=== PATIENT | female | born 1985 | race Caucasian/White ===

== ENCOUNTER 2024-04-28 14:43 | Emergency (ER) | payer OTHER ==
[2024-04-28 16:08] LABS: Absolute Lymphocytes (CBC) 0.8 K/uL (0.7-4.9); Absolute Monocytes 0.4 K/uL (0.1-1.3); Absolute Neutrophil 8.4 K/uL (1.8-8.0); Basophils % 0.3 % (0-1.3); Eosinophils % 0.4 % (0-4.4); Hematocrit 25.9 % (36.0-45.0); Hemoglobin 7.6 g/dL (12.0-15.0); Lymphocytes % 8.7 % (15.3-44.8); MCH 18.6 pg (27.0-35.0); MCHC 29.4 g/dL (32.0-36.0); MCV 63.1 fL (80-100); MPV 7.8 fL (7.6-11.3); Monocytes % 3.8 % (3.3-12.3); Neutrophils % 86.8 % (41.7-73.7); Platelets 294 thou/uL (152-406); Red Cell Distribution Width 18.7 % (12.1-15.2)
[2024-04-28] MEDS ORDERED: NA CHLORIDE 0.9% 1,000 ML ONE ×2 (16:09→16:29)
[2024-04-28 16:23] LABS: SARS-CoV-2 Antigen CONTROL BLUE LINE VIS/BG OK; SARS-CoV-2 Antigen Rapid Res Negative (Negative)
[2024-04-28 16:27] LABS: Albumin 3.1 g/dL (3.4-5.0); Anion Gap 13.3 mEq/L (5.0-15.0); Bilirubin Total 0.3 mg/dL (0.2-1.0); Globulin 3.1 g/dL (2.3-3.5); Potassium 3.3 mEq/L (3.5-5.1); Protein, Total 6.2 g/dL (6.4-8.2)
[2024-04-28 16:33] LABS: Platelet Estimate ADEQ; White Blood Cell Scan OK (OK)
[2024-04-28 16:34] LABS: Blood Morphology Comment NOTED (NOT SEEN); Hypochromasia 2+; Microcytosis 2+
[2024-04-28] MEDS ORDERED: ONDANSETRON 4 MG/2 ML VIAL ONE (17:44)
--- NOTE | 2024-04-28 18:57 | EDPHYS ---
Physician Documentation [facility] Name: Elizabeth Velázquez Age: 38 yrs Sex: Female : 1985 Arrival Date: 04/28/2024 Time: 14:43 Bed 19 Private MD: ED Physician Chapito Beasley HPI: 04/28 15:24 This 38 yrs old Female presents to ER via Ambulatory with complaints of 5 wks , sb4 Vomiting, Fever. 15:32 Sudden onset of dizziness and feeling hot that began this morning while in active. sb4 Patient is approximately 5 weeks . Has not yet had care. This is her fifth . Denies any abdominal pain or cramping. No vaginal bleeding. Denies any chest pain or shortness of breath. Denies any upper respiratory symptoms. does report history of anxiety. RATING EXAMINER: 15:18 5, Full Term 4, Living 4, LMP 03/27/2024, unknown jl7 Historical: - Allergies: 15:18 No Known Allergies; jl7 - Home Meds: 15:18 None [Active]; jl7 - PMHx: 15:18 Anxiety; jl7 - Immunization history:: Adult Immunizations unknown. - Infectious Disease History:: Denies. - Social history:: Smoking status: unknown. ROS: 15:32 Constitutional: Negative for fever, chills, and weight loss, sb4 15:32 Abdomen/GI: Positive for nausea and vomiting, 15:32 All other systems are negative, Exam: 15:32 Head/Face: Normocephalic, atraumatic. Eyes: Extra-ocular motions intact. Periorbital sb4 areas with no swelling, redness, or edema. ENT: Mucous membranes moist. Respiratory: No increased work of breathing, no retractions or nasal flaring. Abdomen/GI: Soft, non-tender, no distension. Skin: Warm, dry with normal turgor. Normal color with no rashes, no lesions, and no evidence of cellulitis. 15:32 Constitutional: The patient appears alert, awake, anxious, in obvious distress, restless, uncomfortable, 15:32 Cardiovascular: Rate: tachycardic, Rhythm: regular, Vital Signs: 15:17 BP 122 / 57; Pulse 115; Resp 20; Temp 69.9; Pulse Ox 100% ; jl7 16:25 Temp 98.6(O); cm10 16:35 BP 131 / 57; Pulse 110; Resp 15; Pulse Ox 100% on R/A; cm10 17:00 BP 121 / 52; Pulse 107; Resp 19; Pulse Ox 100% on R/A; cm10 19:13 BP 108 / 60; Pulse 98; Resp 19; Temp 98.7(O); Pulse Ox 100% on R/A; Pain 0/10; mt4 20:48 BP 117 / 58; Pulse 96; Resp 17; Pulse Ox 100% on R/A; Pain 0/10; mt4 21:00 BP 121 / 49; Pulse 89; Pulse Ox 100% on R/A; mt4 22:36 BP 123 / 53; Pulse 88; Resp 18; Pulse Ox 100% on R/A; mt4 19:13 Pain Scale: Adult mt4 20:48 Pain Scale: Adult mt4 Gerry Coma Score: 19:50 Eye Response: spontaneous(4). Motor Response: obeys commands(6). Verbal Response: mt4 oriented(5). Total: 15. MDM: 15:14 Medical Screening Exam initiated sb4 18:59 Data reviewed: vital signs, nurses notes, lab test result(s), radiologic studies. sb4 Counseling: I had a detailed discussion with the patient and/or guardian regarding the historical points, exam findings, and any diagnostic results supporting the discharge/admit diagnosis, lab results, radiology results, the need to transfer to another facility, [facility] does not immediately have the required specialist. ED course: patient still very dizzy, tachycardic, and vomiting. will transfer for OB services. 20:14 ED course: spoke with OB at [facility], they declined. states OB will not admit a 5 week sb4 and medicine will not either. all [facility] facilities are at medsurg capacity per transfer center. 21:30 ED course: [facility] denied due to capacity. [facility] denied due to sb4 capacity. [facility] denied due to capacity. 21:32 ED course: spoke with hospitalist here, Dr. Jessica, refuses to admit patient here. sb4 04/28 15:19 Order name: CBC with Diff; Complete Time: 16:36 sb4 04/28 15:19 Order name: CMP; Complete Time: 16:31 sb4 04/28 15:19 Order name: SARS RAPID; Complete Time: 16:23 sb4 04/28 15:19 Order name: Flu; Complete Time: 18:13 sb4 04/28 15:22 Order name: HCG-Quantitative; Complete Time: 18:15 sb4 04/28 16:34 Order name: CBC Smear Scan; Complete Time: 16:36 EDMS 04/28 21:01 Order name: ABG: VBG sb4 04/28 21:11 Order name: CBC with Diff sb4 04/28 21:11 Order name: BMP sb4 04/28 18:15 Order name: Transvaginal OB US; Complete Time: 19:16 sb4 04/28 15:19 Order name: IV Saline Lock; Complete Time: 16:24 sb4 04/28 15:19 Order name: Labs collected and sent; Complete Time: 16:24 sb4 Administered Medications: 16:24 Drug: NS 0.9% IV 1000 ml IV at 1 bolus Per protocol; to be given as a bolus over 60 cm10 minutes Route: IV; Rate: 1 bolus; Site: right antecubital; 17:24 Follow up: Response: No adverse reaction; IV Status: Completed infusion; IV Intake: cm10 1000ml 16:32 Drug: NS 0.9% IV 1000 ml IV at 1 bolus Per protocol; to be given as a bolus over 60 cm10 minutes Route: IV; Rate: 1 bolus; Site: right antecubital; 18:19 Follow up: Response: No adverse reaction; IV Status: Completed infusion; IV Intake: cm10 1000ml 17:51 Drug: Ondansetron IVP 4 mg IVP once; over 2 minutes Route: IVP; Site: right antecubital;cm10 18:19 Follow up: Response: No adverse reaction cm10 21:22 CANCELLED (Physician Discretion): [id number] mg IVP once sb4 22:19 Drug: lactated ringers Solution 1000 ml IV at 100 ml/hr continuous Route: IV; Rate: 100 mt4 ml/hr; Site: right antecubital; 23:10 Follow up: Response: No adverse reaction; IV Status: Infusion continued mt4 22:19 Drug: Meclizine PO 25 mg PO once Route: PO; mt4 23:09 Follow up: Response: No adverse reaction mt4 Disposition: 04/29 17:26 Co-signature as Attending Physician, Chapito Beasley MD. rn Disposition Summary: 04/28/24 18:57 Transfer Ordered Notes: Transfer Location: [facility]-System sb4 Reason: Specialty sb4 Condition: Fair sb4 Problem: new sb4 Symptoms: are unchanged sb4 Accepting Physician: ob(04/28/24 23:27) vc1 Diagnosis - Acidosis sb4 - Symptomatic anemia sb4 - 5 weeks gestation sb4 Forms: - Medication Reconciliation Form sb4 - SBAR form sb4 Signatures: Dispatcher [employer] EDMS Fredy Horton MD MD rn Leal, Jahala, RN RN jl7 Danni Loo RN RN vc1 Clemencia Willams PA-C PAHeron sb4 Renny Croado, RN RN rs5 Madonna Huber, RN RN cm10 Bishnu Steinberg, RN RN mt4 Corrections: (The following items were deleted from the chart) 04/28 15:20 15:20 CBC+H.LAB.BRZ ordered. EDMS EDMS 15:20 15:20 COMPREHENSIVE METABOLIC PANEL+C.LAB.BRZ ordered. EDMS EDMS 15:20 15:20 Test, Urine+UC.LAB.BRZ ordered. EDMS EDMS 15:20 15:20 Urinalysis+U.LAB.BRZ ordered. EDMS EDMS 15:20 15:20 SARS-COV-2 Antigen Rapid+I.LAB.BRZ ordered. EDMS EDMS 15:20 15:20 Influenza Screen (A \T\ B)+BA.LAB.BRZ ordered. EDMS EDMS 18:16 18:16 Transvaginal Ob+US.RAD.BRZ ordered. EDMS EDMS 21:22 21:21 Promethazine IVP 12.5 mg IVP once ordered. sb4 sb4 21:32 21:27 ED course: . sb4 sb4 21:34 20:14 ED course: spoke with OB at [facility], they declined. states OB will not admit a 5 sb4 week and medicine will not either.. sb4 23:27 18:57 ob sb4 vc1
--- NOTE | 2024-04-28 18:57 | ER ---
Nurse's Notes [facility] Name: Elizabeth Velázquez Age: 38 yrs Sex: Female : 1985 Arrival Date: 04/28/2024 Time: 14:43 Bed 19 Private MD: Diagnosis: Acidosis;Symptomatic anemia;5 weeks gestation Presentation: 04/28 15:17 Chief complaint: Spouse and/or significant other states: she got hot and dizzy and jl7 started vomiting. Coronavirus screen: At this time, the client does not indicate any symptoms associated with coronavirus-19. Ebola Screen: No symptoms or risks identified at this time. Initial Sepsis Screen: Does the patient meet any 2 criteria? No. Patient's initial sepsis screen is negative. Does the patient have a suspected source of infection? No. Patient's initial sepsis screen is negative. Risk Assessment: Do you want to hurt yourself or someone else? Patient reports no desire to harm self or others. Onset of symptoms was April 28, 2024. 15:17 Method Of Arrival: Ambulatory [facility] 15:17 Acuity: KEENAN 3 jl7 ACCOUNT STRATEGIST: 15:18 5, Full Term 4, Living 4, LMP 03/27/2024, unknown jl7 Historical: - Allergies: 15:18 No Known Allergies; jl7 - Home Meds: 15:18 None [Active]; jl7 - PMHx: 15:18 Anxiety; jl7 - Immunization history:: Adult Immunizations unknown. - Infectious Disease History:: Denies. - Social history:: Smoking status: unknown. Screenin:20 [facility] ED Fall Risk Assessment (Adult) History of falling in the last 3 months, cm10 including since admission No falls in past 3 months (0 pts) Confusion or Disorientation No (0 pts) Intoxicated or Sedated No (0 pts) Impaired Gait No (0 pts) Mobility Assist Device Used No (0 pt) Altered Elimination No (0 pt) Score/Fall Risk Level 0 - 2 = Low Risk Oriented to surroundings, Maintained a safe environment, Hourly rounding (assess needs \T\ fall precautionary measures) done. Abuse screen: Denies threats or abuse. Denies injuries from another. Nutritional screening: No deficits noted. Tuberculosis screening: No symptoms or risk factors identified. Assessment: 16:20 General: Appears in no apparent distress. uncomfortable, Behavior is cooperative. cm10 General: Appears ill. Neuro: No deficits noted. Level of Consciousness is awake, alert, obeys commands, Oriented to person, place, time, situation, Appropriate for age Reports dizziness. Respiratory: No deficits noted. Airway is patent Respiratory effort is even, unlabored, Respiratory pattern is regular, symmetrical. GI: Abdomen is flat, Reports nausea, vomiting. 18:33 Reassessment: Patient appears in no apparent distress at this time. No changes from cm10 previously documented assessment. Patient and/or family updated on plan of care and expected duration. Pain level reassessed. Patient is alert, oriented x 3, equal unlabored respirations, skin warm/dry/pink. Patient states symptoms have not improved. 19:52 Reassessment: resting in bed with and MIL at bedside, patient states no pain, mt4 just still feeing dizzy, wants lights to stay off. VS stable, no signs of acute distress observed, education provided. 19:55 Pain: Denies pain. Neuro: Level of Consciousness is awake, alert, obeys commands, mt4 Oriented to person, place, time, situation, Appropriate for age [place] are equal bilaterally Moves all extremities. Gait is steady, Speech is normal, Facial symmetry appears normal, Reports dizziness. Cardiovascular: Capillary refill < 3 seconds. Respiratory: Airway is patent Respiratory effort is even, unlabored, Respiratory pattern is regular, symmetrical. GI: Abdomen is non-distended, Reports nausea. : Denies burning with urination. Musculoskeletal: Range of motion: intact in all extremities. 22:58 Reassessment: report given to MIGUELINA Quintero [facility]. mt4 23:14 Reassessment: EMS transport arrived for transfer, patient is escorted to restroom with mt4 and then placed onto stretcher for transport, IV fluids continued, no signs of acute distress. , patient, and EMS provided with education. 23:28 Reassessment: resting in bed, no signs of acute distress, still complains of dizziness, mt4 patient educated on medication provider ordrered. at bedside, verbalizes understanding of all education provided. Vital Signs: 15:17 BP 122 / 57; Pulse 115; Resp 20; Temp 69.9; Pulse Ox 100% ; jl7 16:25 Temp 98.6(O); cm10 16:35 BP 131 / 57; Pulse 110; Resp 15; Pulse Ox 100% on R/A; cm10 17:00 BP 121 / 52; Pulse 107; Resp 19; Pulse Ox 100% on R/A; cm10 19:13 BP 108 / 60; Pulse 98; Resp 19; Temp 98.7(O); Pulse Ox 100% on R/A; Pain 0/10; mt4 20:48 BP 117 / 58; Pulse 96; Resp 17; Pulse Ox 100% on R/A; Pain 0/10; mt4 21:00 BP 121 / 49; Pulse 89; Pulse Ox 100% on R/A; mt4 22:36 BP 123 / 53; Pulse 88; Resp 18; Pulse Ox 100% on R/A; mt4 19:13 Pain Scale: Adult mt4 20:48 Pain Scale: Adult mt4 Verbank Coma Score: 19:50 Eye Response: spontaneous(4). Motor Response: obeys commands(6). Verbal Response: mt4 oriented(5). Total: 15. ED Course: 14:46 Patient arrived in ED. mr 15:04 Clemencia Willams PA-C is PHCP. sb4 15:04 Fredy Horton MD is Attending Physician. sb4 15:18 Triage completed. jl7 15:18 Arm band placed on right wrist. jl7 15:44 Madonna Huber, CYNDI is Primary Nurse. cm10 16:20 Patient has correct armband on for positive identification. Bed in low position. Call cm10 light in reach. Side rails up X2. Provided Education on: ER process and procedures.. 16:22 Initial lab(s) drawn, by me, sent to lab. Inserted saline lock: 22 gauge in left kb4 antecubital area, using aseptic technique. Blood collected. Flushed with 10 mL NS. 16:25 Inserted saline lock: 20 gauge in right antecubital area, using aseptic technique. cm10 Blood collected. Flushed with 10 mL NS. 17:51 Flu Sent. cm10 18:51 Transvaginal OB US In Process Unspecified. EDMS 19:05 Report given to CYNDI Goetz. cm10 19:13 Bishnu Steinberg RN is Primary Nurse. mt4 19:31 [facility] ty 19:51 connected S RupinderPA for doc to doc with [facility] . ty 19:52 No apparent distress. Resting quietly. mt4 19:52 Patient has correct armband on for positive identification. Bed in low position. Call mt4 light in reach. Side rails up X 1. Adult w/ patient. Client placed on continuous cardiac and pulse oximetry monitoring. NIBP monitoring applied. Door closed. Noise minimized. Lights dimmed. Assisted to bathroom. Assisted with bedpan. 19:52 No provider procedures requiring assistance completed. Patient maintains SpO2 mt4 saturation greater than 95% on room air. 19:54 [facility] declined. ty 20:10 initiated transfer with [facility]. ty 20:57 initiated transfer with [facility]. kmf 21:21 [facility] decline. kmf 21:25 [facility] decline. kmf 21:42 Attending Physician role handed off by Fredy Horton MD ramesh 21:42 Chapito Beasley MD is Attending Physician. ramesh 23:26 pt was accepted to [facility]. Accepting Vera Quispe \T\ 2145. Admin kmf approval given by Parmjit Canas \T\ 2156. Number for nurse to nurse report [phone]. [facility] to transfer pt. 23:29 Patient transferred, IV remains in place. mt4 Administered Medications: 16:24 Drug: NS 0.9% IV 1000 ml IV at 1 bolus Per protocol; to be given as a bolus over 60 cm10 minutes Route: IV; Rate: 1 bolus; Site: right antecubital; 17:24 Follow up: Response: No adverse reaction; IV Status: Completed infusion; IV Intake: cm10 1000ml 16:32 Drug: NS 0.9% IV 1000 ml IV at 1 bolus Per protocol; to be given as a bolus over 60 cm10 minutes Route: IV; Rate: 1 bolus; Site: right antecubital; 18:19 Follow up: Response: No adverse reaction; IV Status: Completed infusion; IV Intake: cm10 1000ml 17:51 Drug: Ondansetron IVP 4 mg IVP once; over 2 minutes Route: IVP; Site: right antecubital;cm10 18:19 Follow up: Response: No adverse reaction cm10 21:22 CANCELLED (Physician Discretion): [id number] mg IVP once sb4 22:19 Drug: lactated ringers Solution 1000 ml IV at 100 ml/hr continuous Route: IV; Rate: 100 mt4 ml/hr; Site: right antecubital; 23:10 Follow up: Response: No adverse reaction; IV Status: Infusion continued mt4 22:19 Drug: Meclizine PO 25 mg PO once Route: PO; mt4 23:09 Follow up: Response: No adverse reaction mt4 Medication: 19:50 VIS not applicable for this client. mt4 Intake: 17:24 IV: 1000ml; Total: 1000ml. cm10 18:19 IV: 1000ml; Total: 2000ml. cm10 Outcome: 18:57 ER care complete, transfer ordered by . sb4 23:27 Patient left the ED. vc1 23:30 Transferred by ground EMS [facility] mt4 23:30 Condition: stable 23:30 Instructed on the need for admit, Demonstrated understanding of instructions, medications, Signatures: Dispatcher [employer] EDChapito Wilson MD MD cha Rivera, Mary, Reg Reg mr GomezChemo, RN RN jl7 Danni Loo RN RN vc1 Clemencia Willams, PA-C PA-C sb4 Madonna Huber, RN RN cm10 Preeti Bush Tylor ty Tath, Molinec RN RN mt4 Kayley Salcedo kb4
--- NOTE | 2024-04-28 19:14 | RAD REPORT ---
EXAM: Transvaginal OB HISTORY: n/v;Fever COMPARISON: None TECHNIQUE: Multiple grayscale and color Doppler images were obtained in a transvaginal pelvic ultraso und. Spectral analysis of the Doppler waveforms of the ovaries were performed. FINDINGS: UTERUS: There is an intrauterine gestational sac. No pole or yolk sac identified. No heart tones identified. The gestational sac measures 7 mm which would be consistent with a 5 week 3 day gestation. No evidence of subchorionic hemorrhage. Incidentally noted subserosal fibroid measuring 1.9 cm. No free fluid is seen in the pelvis. RIGHT OVARY: Not visualized. LEFT OVARY: Normal flow without focal mass. IMPRESSION: Intrauterine saclike structure likely representing a gestational sac which would be consi stent with a 5 week 3 day gestation. No pole, yolk sac, or heart tones which may be due to early dates. Suggest correlation with beta hCG and follow-up ultrasound.
[2024-04-28] MEDS ORDERED: MECLIZINE HCL 12.5 MG TAB ONE (21:52)
[2024-04-28] MEDS ORDERED: Ringers Lactate 1,000 ML IV ONE (21:53)
[2024-04-28 22:28] LABS: Absolute Monocytes 0.2 K/uL (0.1-1.3); Absolute Neutrophil 8.9 K/uL (1.8-8.0); Basophils % 0.3 % (0-1.3); Hematocrit 25.5 % (36.0-45.0); Hemoglobin 7.5 g/dL (12.0-15.0); MCH 18.5 pg (27.0-35.0); MCHC 29.6 g/dL (32.0-36.0); MPV 7.6 fL (7.6-11.3); Monocytes % 2.3 % (3.3-12.3); Neutrophils % 87.4 % (41.7-73.7); Nucleated Red Blood Cells % 0.1 % (0-0); Platelets 347 thou/uL (152-406); RBC Red Blood Cell Count 4.08 M/uL (3.86-4.86); Red Cell Distribution Width 18.9 % (12.1-15.2)
[2024-04-28 22:31] LABS: MCV 62.4 fL (80-100)
[2024-04-28 22:45] LABS: Anion Gap 11.8 mEq/L (5.0-15.0); Potassium 3.8 mEq/L (3.5-5.1)
[2024-04-29 06:46] VITALS: O2SAT 100
[2024-04-29 07:01] VITALS: TEMP 98.7
[2024-04-29 07:06] VITALS: BP 123/53
== END 2024-04-28 23:27 | disposition short-term general hospital (02) ==
LOC: ER 14:43
DX: O99.011 Anemia complicating pregnancy, first trimester (principal); D64.89 Other specified anemias; E87.20 Acidosis, unspecified; Z3A.01 Less than 8 weeks gestation of pregnancy; Z11.52 Encounter for screening for COVID-19
CPT/HCPCS: 96365; 96361; 85025 ×2; 80048; 36415; 84702; 80053; 87804 ×2; 76817; 96375; 99285; 87811; J8597; J2405; J7120; J7030 ×2